=== PATIENT | female | born 1950 | race Caucasian/White ===

== ENCOUNTER 2022-09-07 14:20 | Emergency (ER) | payer OTHER, SELFPAY ==
--- NOTE | ~2022-09-07 | XR_ITS ---
XR knee RT min 4V 09/07/2022 15:01 INDICATION: Right knee pain PROCEDURE: 4 views right knee COMPARISON: No prior studies for comparison. FINDINGS: Fracture, dislocation or subluxation is not identified. No significant joint effusion. The soft tissues appear within normal limits. No foreign bodies are identified. IMPRESSION: 1: NO ACUTE BONE OR JOINT ABNORMALITY IDENTIFIED. Reviewed, dictated and finalized at location L.
[2022-09-07 14:40] VITALS: BP 144/69; PULSE 75; RESP 16; TEMP 36.8; O2SAT 100
--- NOTE | 2022-09-07 14:51 | ED.LOWEXIN ---
HPI - Extremity Injury (Lower) General Chief Complaint: Extremity Injury, Lower Stated Complaint: right knee pain Time Seen by Provider: 09/07/22 14:42 Source: patient Mode of arrival: ambulatory Limitations: no limitations History of Present Illness HPI Narrative: Patient is a 71-year-old female who presents with right knee pain after fall last week. Reports the pain is in the front and the left side of the knee and it ozuna. Patient states she has been elevating it, using ice, and an arthritis spray with no relief. Patient states she uses a pillow between her knees at night, but at 3:00 a.m. the pain is to high and she has to go sleep in recliner. Patient able ambulate unassisted. Has not used any compression Related Data Home Medications Medication Instructions Recorded Confirmed atorvastatin 80 mg tablet 80 mg PO HS 09/07/22 09/07/22 losartan 100 1 tablet PO DAILY 09/07/22 09/07/22 mg-hydrochlorothiazide 25 mg tablet pantoprazole 40 mg tablet,delayed 40 mg PO DAILY 09/07/22 09/07/22 release Allergies Allergy/AdvReac Type Severity Reaction Status Date / Time No Known Allergies Allergy Verified 09/07/22 15:16 Review of Systems Review of Systems: All systems reviewed & are unremarkable except as noted in HPI and below Constitutional: Constitutional: Denies body ache(s), Denies fever(s), Denies headache(s), Denies malaise and Denies weakness Eyes: Eyes: Denies loss of vision ENT: Denies otalgia, Denies headache(s), Denies nasal discharge, Denies sinus pain and Denies sore throat Cardiovascular: Cardiovascular: Denies chest pain, Denies irregular heart rhythm and Denies dyspnea Respiratory: Respiratory: Denies dyspnea Gastrointestinal: Gastrointestinal: Denies abdominal pain, Denies melena, Denies hematochezia, Denies diarrhea, Denies nausea and Denies vomiting Musculoskeletal: Musculoskeletal: Denies back pain, Denies myalgias and Reports arthralgias (Right knee) Integumentary/Breasts: Skin/Breast: Denies pruritus and Denies rash Neurologic: Denies headache(s), Denies loss of vision and Denies weakness Psychiatric: Psychiatric: Reports no additional psychiatric complaints PMFSH Comments At time of signature, agree with nursing past medical, surgical, social and family history. There is no relevant family history pertinent to the presenting complaint. Exam Const: General: cooperative, healthy appearing, comfortable, no acute distress and well nourished Nutritional Appearance: well nourished Orientation/consciousness: patient oriented x3 Limitations: no limitations HENMT: Head: normal to inspection, normocephalic and atraumatic Ears: external ears normal Face/Nose/Sinus: Normal external nose present, normal facial exam and face symmetric Face and sinus: normal facial exam and face symmetric Mouth: Yes lip normal Eyes: General: appearance normal, both eyes and all related structures Alignment and Position: alignment normal and position normal Periorbital: periorbital findings normal Eyelids: eyelids normal Pupils: Equal, round and reactive pupils present EOM: EOMs intact bilaterally Neck: Neck: normal visual inspection and full ROM Chest: Chest palpation & inspection: normal inspection of the chest Resp: Effort & Inspection: normal respiratory effort and able to speak in complete sentences Auscultation: clear to auscultation bilaterally Cardio: Rate: regular rate Rhythm: regular rhythm Heart sounds: S1 normal heart sound present and S2 normal heart sound present GI: Inspection: normal to inspection Skin: General skin exam: normal color and no rashes or lesions noted Neuro: General: patient oriented x3 and moves all extremities Cranial nerves: Yes Equal, round and reactive pupils present Speech: normal speech Gait exam (Neuro): Normal gait present Extrem: General: normal to inspection, full ROM and no edema Right lower extremity: knee Details: normal to inspection, swelling Loc
== END 2022-09-07 15:46 | disposition home or self-care (01) ==
PROVIDERS: Emergency Provider Nurse Practitioner Family
DX: M23.91 Unspecified internal derangement of right knee (principal); E78.00 Pure hypercholesterolemia, unspecified; I10 Essential (primary) hypertension; K21.9 Gastro-esophageal reflux disease without esophagitis
CPT/HCPCS: 73564; 99213; G0463

== ENCOUNTER 2023-08-13 08:19 | Outpatient (CLI) | payer OTHER, SELFPAY ==
--- NOTE | ~2023-08-13 | DEXA_ITS ---
Bone Density Report Name: PAMELA ACUÑA Age: 72 Sex: Female Ethnicity: White Date of : 1950 Indication: postmenopausal; screening for osteoporosis; height loss; hysterectomy; Referring Provider: KAYLA HERNÁNDEZ Study: Bone densitometry was performed. Exam Date: August 13, 2023 Accession number: [id number] Bone Density: Region BMD T-score Z-score Classification AP Spine(L1-L4) 1.076 0.3 2.6 Normal Femoral Neck (Left) 0.626 -2.0 0.1 Osteopenia Total Hip (Left) 0.902 -0.3 1.4 Normal Femoral Neck (Right) 0.656 -1.7 0.3 Osteopenia Total Hip (Right) 0.822 -1.0 0.8 Normal Total Hip Mean 0.862 -0.7 1.1 Normal World Health Organization criteria for BMD impression classify patients as: Normal (T-score at or above -1.0), Osteopenia (T-score between -1.0 and -2.5), or Osteoporosis (T-score at or below -2.5). 10-year Fracture Risk(1): Major Osteoporotic Fracture 12% Hip Fracture 2.8% Reported Risk Factors: [place] (), Neck BMD=0.626, BMI=33.1 (1) FRAX(R) Version 3.08. Fracture probability calculated for an untreated patient. Fracture probability may be lower if the patient has received treatment. Clinical Information Provided by Patient: Has used the following medications: Vitamin D Has the following medical conditions: Hysterectomy Patient maximum height was 64.5 No regular weight bearing exercise Does not regularly consume dairy products Drinks caffeinated beverages Onset of menses at age 11 Number of children 3 Impression: The patient has low bone mass, based on the Left Femoral Neck T-score. The patient has an estimated ten-year risk of hip fracture of 2.8% and an estimated ten-year risk of major fracture of 12%, based on the WHO FRAX algorithm. Discussion: BONE DENSITY IS LOW AT ONE OR MORE SKELETAL SITES. This patient's lowest T-score is low at one or more skeletal sites. It meets the World Health Organization's (WHO) criteria for ?low bone mass? (T-score between -1.0 and -2.5). The patient's 10-year risk of fracture as calculated by FRAX is less than the threshold where pharmacological therapy is recommended by the National Osteoporosis Foundation (NOF). However, all treatment decisions require clinical judgment and consideration of individual patient factors, including patient preferences, comorbidities, previous drug use, risk factors not captured in the FRAX model (e.g., frailty, falls, vitamin D deficiency, increased bone turnover, interval significant decline in bone density) and possible under or overestimation of fracture risk by FRAX. The patient should follow a healthful lifestyle (good nutrition with adequate calcium and vitamin D, and appropriate weight-bearing exercise). Follow-Up: Consider repeating this study in 2 to 3 years to reassess this
--- NOTE | ~2023-08-13 | MM_ITS ---
EXAMINATION: MM screening cassie BI w deepak HISTORY: Screening TECHNIQUE: Craniocaudal and mediolateral oblique 3-D tomosynthesis images were obtained and synthetic 2-D images were generated. CAD analysis was submitted and interpreted. COMPARISON: No prior mammogram is available for comparison at this institution. BREAST PARENCHYMAL COMPOSITION: Not dense: There are scattered areas of fibroglandular density. FINDINGS: There are focal asymmetries medially and laterally in the left breast on CC view.. There is no mammographic evidence for malignancy in the right breast. IMPRESSION: 1. Focal left breast asymmetries. 2. Additional mammographic views and possible breast ultrasound are recommended. BI-RADS Category 0: Incomplete: Needs additional imaging evaluation. Reviewed, dictated and finalized at location A. IMPRESSION: 1. Focal left breast asymmetries. 2. Additional mammographic views and possible breast ultrasound are recommended . BI-RADS Category 0: Incomplete: Needs additional imaging evaluation.
== END 2023-08-13 08:20 | disposition home or self-care (01) ==
LOC: ANHIMG 08:20
PROVIDERS: PCP Family Medicine; Visit Provider Family Medicine
DX: Z12.31 Encounter for screening mammogram for malignant neoplasm of breast (principal); Z78.0 Asymptomatic menopausal state; R92.8 Other abnormal and inconclusive findings on diagnostic imaging of breast; M85.852 Other specified disorders of bone density and structure, left thigh; M85.851 Other specified disorders of bone density and structure, right thigh
CPT/HCPCS: 77063; 77067; 77080

== ENCOUNTER 2023-08-20 11:13 | Outpatient (CLI) | payer OTHER, SELFPAY ==
--- NOTE | ~2023-08-20 | MMUS_ITS ---
EXAMINATION: MM diagnostic cassie LT w deepak, US breast LT complete HISTORY: Focal left breast mammographic asymmetries reported on 08/13/2023 screening mammogram examina tions TECHNIQUE: Additional 3-D tomosynthesis images of the left breast were performed and synthetic 2-D im ages were generated. CAD analysis was submitted and interpreted. High resolution complete left breast ultrasound examination including all 4 quadrants and subareolar area was performed. COMPARISON: 08/13/2023 bilateral screening mammogram FINDINGS: MAMMOGRAPHIC FINDINGS: No suspicious mass, architectural distortion, malignant calcification, skin thickening or retraction of the left breast is detected. ULTRASOUND: 3:00 12 cm from nipple: Benign-appearing lymph node is noted 9:00 3 cm from nipple: Irregular hypoechoic 3.9 x 3 mm hypoechoic solid mass is noted, with no straddle bug operator ior features. Due to the irregular margins of the solid lesion, ultrasound-guided biopsy is recommend ed. IMPRESSION: 1. Irregular 3.9 mm solid mass at 9:00 3 cm from nipple 2. Ultrasound-guided biopsy of 9:00 mass is recommended BI-RADS category 4, suspicious findings. Dr. Panda telephoned the report and ultrasound guided biopsy recommendation for the 3.9 mm mass at lef t breast 9:00 position on 08/20/2023 at 1250 hours to Gregory Reed. Reviewed, dictated and finalized at location A. IMPRESSION: 1. Irregular 3.9 mm solid mass at 9:00 3 cm from nipple 2. Ultrasound-guided biopsy of 9:00 mass is recommended BI-RADS category 4, suspicious findings. Dr. Panda telephoned the report and ultrasound guided biopsy recommendation for the 3.9 mm mass at left breast 9:00 position on 08/20/2023 at 1250 hours to Gregory Billings. IMPRESSION: 1. Irregular 3.9 mm solid mass at 9:00 3 cm from nipple 2. Ultrasound-guided biopsy of 9:00 mass is recommended BI-RADS category 4, suspicious findings. Dr. Panda telephoned the report and ultrasound guided biopsy recommendation for the 3.9 mm mass at left breast 9:00 position on 08/20/2023 at 1250 hours to Francoise ng, [employer]ist[employer].
== END 2023-08-20 11:14 | disposition home or self-care (01) ==
LOC: ANHIMG 11:15
PROVIDERS: PCP Family Medicine; Visit Provider Physician Assistant
DX: R92.8 Other abnormal and inconclusive findings on diagnostic imaging of breast (principal)
CPT/HCPCS: 76641; 77061; 77065; G0279

== ENCOUNTER 2023-09-17 08:09 | Outpatient (CLI) | payer OTHER, SELFPAY ==
--- NOTE | ~2023-09-17 | US_ITS ---
CORRECTED REPORT corrected examination description [facility] [place]18/2023 This report was recreated on 09/18/23. Original report was US breast cyst asp LT w g DATE: 09/17/2023 09:42 INDICATION: Irregular hypoechoic 3.9 x 3 mm lesion was reported at 9:00 3 cm from nipple TECHNIQUE: The purpose of the procedure, technique and potential competitions including bleeding were discussed with the patient. The patient verbalized understanding and gave consent. Timeout procedure was performed. The skin of the left breast was prepared with sterile solution. Sterile drapes were applied. Using ultrasound imaging, the lesion of interest at 9:00 3 cm from the nipple was located. This appeared relatively sonolucent on the current examination. 1% lidocaine local and synthetic was administered to the skin. 1% lidocaine with epinephrine was administered to the underlying subcutaneous tissues. An 18-gauge needle was introduced into the lesion with ultrasound guidance. The lesion was successfully aspirated, with no residual afterwards, consistent with simple cyst. Repeat scanning in the area revealed the lesion along are present. IMPRESSION: Successful ultrasound-guided aspiration of cyst at 9:00 3 cm from nipple Reviewed, dictated and finalized at Location A. Reviewed, dictated and finalized at location A. MTDD IMPRESSION: Successful ultrasound-guided aspiration of cyst at 9:00 3 cm from n ipple
== END 2023-09-17 08:10 | disposition home or self-care (01) ==
LOC: ANHIMG 08:11
PROVIDERS: PCP Family Medicine; Visit Provider Surgery
DX: R92.8 Other abnormal and inconclusive findings on diagnostic imaging of breast (principal)
CPT/HCPCS: 19000; 76942

== ENCOUNTER 2023-09-23 20:07 | Emergency (ER) | payer OTHER, SELFPAY ==
--- NOTE | ~2023-09-23 | XR_ITS ---
EXAMINATION: XR knee RT 3V DATE: 09/23/2023 21:03 INDICATION: Right knee pain. Fall. TECHNIQUE: 3 views of right knee were obtained. COMPARISON: Radiographs 09/07/2022 FINDINGS: Bone alignment is normal. No fracture. Joint spaces are normal. No knee joint effusion. IMPRESSION: 1. No fracture. Reviewed, dictated and finalized at location E. IMPRESSION: 1. No fracture.
--- NOTE | ~2023-09-23 | CT_ITS ---
EXAMINATION: CT cervical spine wo con DATE: 09/23/2023 20:47 INDICATION: Neck injury. TECHNIQUE: Computed tomography (CT) of the cervical spine was performed without intravenous contrast. Automated exposure control and iterative reconstruction technique were employed. The dose-length pro duct was 355.36 mGy-cm. COMPARISON: None FINDINGS: There is a 17 mm nodule in right thyroid lobe. Vertebral body heights are normal. There is mild chronic anterior wedging of T2 vertebral body. There is mildly decreased disc height at C3-C4 an d C4-C5 and moderately decreased disc height at C5-C6 and C6-C7. The following disc levels are specif ically discussed: C2-C3: There is no uncovertebral joint osteoarthritis. There is moderate bilateral facet joint osteoa rthritis. There is no neural foraminal stenosis. There is no central canal stenosis. C3-C4: There is mild bilateral uncovertebral joint osteoarthritis. There is severe bilateral facet brooke int osteoarthritis. There is mild bilateral neural foraminal stenosis. There is no central canal sten osis. C4-C5: There is severe right and moderate left uncovertebral joint osteoarthritis. There is severe bi lateral facet joint osteoarthritis. There is mild bilateral neural foraminal stenosis. There is mild central canal stenosis. C5-C6: There is severe bilateral uncovertebral joint osteoarthritis. There is severe bilateral facet joint osteoarthritis. There is mild bilateral neural foraminal stenosis. There is mild central canal stenosis. C6-C7: There is mild bilateral uncovertebral joint osteoarthritis. There is severe bilateral facet brooke int osteoarthritis. There is mild bilateral neural foraminal stenosis. There is no central canal sten osis. C7-T1: There is no uncovertebral joint osteoarthritis. There is severe bilateral facet joint osteoart hritis. There is mild bilateral neural foraminal stenosis. There is no central canal stenosis. IMPRESSION: 1. No fracture. 2. Moderate cervical spondylosis. Reviewed, dictated and finalized at location E.
--- NOTE | ~2023-09-23 | CT_ITS ---
EXAMINATION: CT brain wo con DATE: 09/23/2023 20:47 INDICATION: Head trauma. TECHNIQUE: Computed tomography (CT) of the head was performed without intravenous contrast. The mA wa s adjusted according to patient size. Iterative reconstruction technique was employed. The dose-lengt h product was 681.00 mGy-cm. COMPARISON: None FINDINGS: There is no intracranial hemorrhage, acute infarction, or abnormal intracranial mass lesion . The ventricles are normal in size. There is mild mucosal thickening in the paranasal sinuses. The o rbits are normal. The mastoid air cells are normal. IMPRESSION: 1. Normal brain. Reviewed, dictated and finalized at location E. IMPRESSION: 1. Normal brain.
[2023-09-23 20:09] VITALS: BP 172/72; PULSE 75; RESP 18; TEMP 36.6; O2SAT 100
--- NOTE | 2023-09-23 20:19 | ECG_ITS ---
SEE SCANNED COPY FOR CONFIRMED REPORT MTDD
[2023-09-23 20:20] VITALS: PULSE 91
[2023-09-23 20:34] LABS: Basophils Absolute Auto 0.1 K/mm3 (0.0-0.1); Basophils Percent Auto 0.5 % (0.2-1.2); Eosinophils Absolute Auto 0.1 K/mm3 (0-0.3); Eosinophils Percent Auto 0.8 % (0-4.4); Hematocrit 41.2 % (37.0-47.0); Hemoglobin 13.7 g/dL (12.0-15.0); Immature Granulocyte Absolute 0.02 K/mm3 (0.00-0.031); Immature Granulocyte Percent A 0.2 % (0-0.5); Lymphocytes Absolute Auto 3.86 K/mm3 (0.9-3.2); Lymphocytes Percent Auto 38.7 % (18.3-44.2); Mean Corpuscular HGB Conc 33.3 g/dl (32-36); Mean Corpuscular Hemoglobin 28.5 pg (26-34); Mean Corpuscular Volume 85.7 fl (80-100); Mean Platelet Volume 9.7 fl (7.4-10.4); Monocytes Absolute Auto 0.9 K/mm3 (0.1-0.6); Monocytes Percent Auto 9.1 % (2.6-8.5); Neutrophils Absolute Auto 5.1 K/mm3 (1.3-6.7); Neutrophils Percent Auto 50.7 % (45.5-73.1); Platelet Count Result 282 k/mm3 (150-375); Red Blood Count 4.81 M/mm3 (4.2-5.4)
[2023-09-23 20:44] LABS: Alanine Aminotransferase 13 U/L (6-35); Albumin Level 4.6 g/dL (3.5-5.1); Alkaline Phosphatase 79 U/L (38-126); Anion Gap 8 mmol/L (4-12); Aspartate Amino Transferase 23 U/L (14-36); Bilirubin,Total 0.9 mg/dL (0.2-1.3); Blood Urea Nitrogen 17 mg/dL (7-17); Calcium 9.9 mg/dL (8.4-10.2); Carbon Dioxide 27 mmol/L (22-30); Chloride 105 mmol/L (98-107); Estimated CRCL calculation 41 ml/min; Estimated Glomerular Filt Rate 49; Glucose 104 mg/dL (65-110); INR 0.9; Potassium 3.7 mmol/L (3.4-5.0); Prothrombin Time 12.6 Seconds (11.1-14.7); Sodium 140 mmol/L (137-145)
[2023-09-23 20:45] LABS: Partial Thromboplastin Time 25.3 Seconds (22.3-36.8)
--- NOTE | 2023-09-23 21:10 | ED.GENADULT ---
HPI - General Adult General Chief complaint: Trauma Stated complaint: fall head injury Time Seen by Provider: 09/23/23 20:16 History of Present Illness HPI narrative: This is a 72-year-old female presenting after a fall. She was attempting to move a children's table she hit her knee against it. She then fell striking the back her head. She did lose consciousness. No use of blood thinners. She regained consciousness but developed headache and then came to emergency room evaluation. This time she is complaining of a headache pain in left side of her neck and right knee pain. She has been ambulatory since the incident. Related Data Allergies Allergy/AdvReac Type Severity Reaction Status Date / Time No Known Allergies Allergy Verified 08/22/23 09:58 PMF Past Medical History Medical History Benign essential HTN Diabetes mellitus Hernia of abdominal cavity Hyperlipidemia Uterine fibroid Surgical History Surgical History H/O colonoscopy with polypectomy 2020, repeat in 2025 Hx of cholecystectomy Hx of hysterectomy S/P hernia surgery x3 Family History Family History Father Diabetes mellitus Hypertension Cerebrovascular accident Mother Diabetes mellitus Hypertension Cerebrovascular accident Sibling Diabetes mellitus Hypertension Cerebrovascular accident Social History Social History (Updated 08/22/23 @ 10:20 by Pao Dolan CMA) Social History: Smoking status: Never smoker Second hand tobacco smoke exposure: No Alcohol intake: never Substance use: never Substance use type: does not use Do You Feel Safe in your Home?: Yes Lack of Transportation: No Lack of Food: Never True Current Housing: I Have Housing Concerned About Future Housing: No Difficulty Paying Gas/Electric Bills: No Difficulty Paying for Meds: No Currently Unemployed: No Education: Don't Know Difficulty w/ Childcare or Family Care: No Living arrangements: with family Occupation/Education: retired Gender identity (if verbalized by the patient): Female Sexual Orientation (if Verbalized by the Patient): Straight or Heterosexual Exam Narrative: APPEARANCE: No apparent distress. Head: atraumatic. EYES: EOMI, NOSE: Atraumatic NECK: Trachea midline RESPIRATORY: No increased rate of breathing CTAB CARDIOVASCULAR: RRR, no peripheral edema ABDOMINAL: Non-distended soft nontender MUSCULOSKELETAl: Head to toe trauma exam revealed no obvious injuries NEURO: Alert. Cranial nerves 2-12 grossly intact. Sensation light touch, motor function cerebellar function intact for 4 extremities. Gait exam was normal. SKIN:: Warm, dry. Normal color PSYCHIATRIC: Normal affect Course Vital Signs Vital signs: Vital Signs Temperature 97.8 F 09/23/23 20:09 Pulse Rate 75 09/23/23 20:09 Respiratory Rate 18 09/23/23 20:09 Blood Pressure 172/72 H 09/23/23 20:09 Pulse Oximetry 100 09/23/23 20:09 Oxygen Delivery Room Air 09/23/23 20:09 Temperature 97.8 F 09/23/23 20:09 Pulse Rate 91 09/23/23 20:20 Respiratory Rate 18 09/23/23 20:09 Blood Pressure 172/72 H 09/23/23 20:09 Pulse Oximetry 100 09/23/23 20:09 Oxygen Delivery Room Air 09/23/23 20:09 Medical Decision Making [facility] Narrative Medical decision making narrative: -Course: 72-year-old female presenting after a mechanical fall. Trauma workup negative. Metabolic panel unremarkable. Patient refused all pain medication. Patient be discharged with primary care follow-up. -DDX includes but is not limited to: Concussion, ICH, soft tissue injury -Independent interpretation of studies: Imaging negative for traumatic injury. Labs reviewed WNL -Shared decision making / Disposition:d/c'd Vital Signs Vital Signs: Vital
== END 2023-09-23 21:48 | disposition home or self-care (01) ==
PROVIDERS: Emergency Provider Emergency Medicine; PCP Family Medicine
DX: S19.9XXA Unspecified injury of neck, initial encounter (principal); S89.91XA Unspecified injury of right lower leg, initial encounter; I10 Essential (primary) hypertension; E11.9 Type 2 diabetes mellitus without complications; E78.5 Hyperlipidemia, unspecified; Z90.49 Acquired absence of other specified parts of digestive tract; Z90.710 Acquired absence of both cervix and uterus; R94.31 Abnormal electrocardiogram [ECG] [EKG]; M47.812 Spondylosis without myelopathy or radiculopathy, cervical region; W18.09XA Striking against other object with subsequent fall, initial encounter
CPT/HCPCS: 36415; 70450; 72125; 73562; 80053; 85025; 85610; 85730; 93005; 99284

== ENCOUNTER 2024-08-05 16:57 | Outpatient (CLI) | payer OTHER, SELFPAY ==
--- NOTE | ~2024-08-05 | XR_ITS ---
Clinical Indication: Chest pain PA and lateral views of the chest: Comparison: None Findings: The lungs are clear, without evidence of focal consolidation or pleural effusion. Cardiome diastinal silhouette is within normal limits. Bones and soft tissues are unremarkable. Impression: Normal chest. Reviewed, dictated and finalized at location . Impression: Normal chest.
--- OUTSIDE RECORDS SUMMARY | 2024-08-05 18:16 | XMS_ITS | CONTINUITY OF CARE DOCUMENT ---
Author Name devendra ramsay Address Unknown Organization [facility] Address [address] [place] [address] Phone [phone] Care Team Providers Care Bsa Officer Name Role Phone Dennis COHEN, Edu Unavailable [phone] TANIA HUTCHISON DO Unavailable [phone] TANIA HUTCHISON DO Unavailable [phone] PROBLEMS Condition Status Date Provider Notes Dyspnea on exertion active Neva Ochoa INSURANCE PROVIDERS Payer name Policy type / Coverage type [place] red constitution party ID [facility] [id number] [place] MED[place] Medicare [id number] HISTORY OF PROCEDURES Procedure Date Procedure Name Provider Procedure Notes S tatus Stress EKG Edu Collins MD completed Regadenoson, 4 units Jovani Centeno MD completed Cardiolite, 2 units Jovani Centeno MD completed SPECT Images Edu Collins MD complet ed
--- OUTSIDE RECORDS SUMMARY | 2024-08-05 18:16 | XMS_ITS | Clinical Summary ---
Author Organization [facility] Address [address] [place] [id number] Care Team Providers Care Tail Sawyer Name Role Phone Unavailable Primary Care Provider Unavailabl e Allergies No known active allergies Medications Blood Glucose Monitoring Suppl (ONE TOUCH ULTRA 2) w/Device KitIndications:Typ e 2 diabetes mellitus without complication, without long-term current use of insulin ([facility]) Use four times a day 1 kit 2 Active CONTOUR NEXT TEST test stripIndications:T ype 2 diabetes mellitus without complication, without long-term current use of insulin ([facility]) USE FOUR TIMES A DAY 100 strip 3 2 Active Microlet Lancets MiscIndications:Ty pe 2 diabetes mellitus without complication, without long-term current use of insulin ([facility]) USE FOUR TIMES A DAY 100 each 3 2 Active losartan-hydroCHLO ROthiazide (HYZAAR) 100-25 MG tabletIndications: Primary hypertension Take 1 tablet by mouth daily. 90 tablet 1 3 Active acetaminophen (TYLENOL) 500 MG tabletIndications: Sprain of medial collateral ligament of right knee, initial encounter Take 2 tab po qid 100 tablet 2 3 Active clotrimazole (LOTRIMIN) 1 % creamIndications:T inea pedis of both feet Apply topically 2 (two) times daily. 85 g 1 3 Active atorvastatin (LIPITOR) 80 MG tabletIndications: Mixed hyperlipidemia TAKE 1 TABLET BY MOUTH NIGHTLY AT BEDTIME. 90 tablet 1 3 Active pantoprazole EC (PROTONIX) 40 MG tabletIndications: Gastroesophageal reflux disease without esophagitis take 1 tablet by mouth every day 90 tablet 4 Active Active Problems Problem Noted Date Diagnosed Date Type 2 diabetes mellitus wit h stage 3a chronic kidney disease, without long-term current use of insulin ([facility]) 08/01/2022 Type 2 diabetes mellitus wit h other circulatory complication, without long-term current use of insulin ([facility]) 08/01/2022 Chronic kidney disease, stage 3a 06/29/2022 Abnormal liver enzymes 04/10/2022 Abnormal vision 04/10/2022 Arthritis 04/10/2022 Dehydration 04/10/2022 Flank pain 04/10/2022 Hyperlipidemia 04/10/2022 Kidney stone 04/10/2022 Osteopenia 04/10/2022 Shoulder pain 04/10/2022 Vitamin D deficiency 04/10/2022 Gastroesophageal reflux disease without esophagi tis 10/06/2021 Chronic low back pain 10/06/2021 Primary osteoarthritis of left hip 10/06/2021 Hyperglycemia 07/10/2017 Dyspnea on exertion 03/02/2015 Class 1 obesity due to exces s calories with serious comorbidity and body mass index (BMI) of 34.0 to 34.9 in adult Hypertension Resolved Problems Problem Noted Date Diagnosed Date Resolved Date Morbid (severe) obesity due to excess calories 01/06/2022 06/29/2022 Immunizations Name Administration Dates Next Due Fluzone High Dose - >Age 65 (Prefilled Syringe) 02/28/2021,03/12/2020 Influenza (Generic) 04/15/2014 Influenza Adult (Generic) 03/05/2022,,02/19/2018,2016,03/30/2016,03/17/2015,04/08/2014 MODERNA COVID-19 (12+) MRNA, LNP-S, PF, 100 MCG/ 0.5 ML DOSE 03/05/2022,11/05/2021,08/21/2020,2020 Pneumococcal (Pneumovax 23) 04/15/2014, 4 Pneumococcal (Prevnar 13) 06/29/2016 Pneumococcal (Prevnar 20) 01/06/2022 Tetanus Toxoid Inj 04/08/2014 Family History Medical History Relation Comments Diabetes Father Hypertension Father Stroke Father Diabetes Mother Hypertension Mother Stroke Mother Diabetes Sister Relation Status Comments Father Mother Sister Social History Tobacco Use Types Packs/Day Years Used Date Smoking Tobacco: Never Smokeless Tobacco: Never Tobacco Cessation:Counseling Given: No Alcohol Use Standard Drinks/Week Comments Not Currently 0 (1 standard drink = 0.6 oz pur e alcohol) PHQ-2 Answer Date Recorded Patient Health Questionnaire-2 Score 0 06/29/2022 Comments No Sex and Gender Information Value Date Recorded Sex Assigned at Not on file Legal Sex Female 8:32 AM CDT Gender Identity Not on file Sexual Orientation Not on file 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 file Not on file Not on file [employer] Not on file Not on file Not on file Last Filed Vital Signs Vital Sign Reading Time Taken Comments Blood Pressure 143/78 12/19/2022 9:40 AM CDT Pulse 83 12/19/2022 9:40 AM CDT Temperature 36.8 C (98.3 F) 12/19/2022 9:40 AM CDT Respiratory Rate 16 12/04/2022 12:42 PM CDT Oxygen Saturation 97% 12/04/2022 12:42 PM CDT Inhaled Oxygen Concentration - - Weight 82.6 kg (182 lb 3.2 oz) 12/19/2022 9:40 A M CDT Height 160 cm (5' 3 ) 12/19/2022 9:40 AM CDT Body Mass Index 32.28 12/19/2022 9:40 AM CDT Plan of Treatment Health Maintenance Due Date Last Done Comments Kidney Health Evaluation 1950 Diabetes: Retinopathy Eye Exam 1966 Zoster Vaccines (1 of 2) 1998 Annual Medicare Wellness Visit 2013 Dexa Scan (General) 2013 Hemoglobin A1C 03/31/2023 09/28/2022, 02/0 06/2022, 04/10/2022, Additional history exists Lipid Panel 06/29/2023 06/29/2022, 10/25/2021 RSV Immunization or 60+ Years (1 - 1-dose 75+ series) 11/29/2023 COVID-19 Vaccine ( season) 2024 03/05/2022, 11/05/2021, 08/21/2020, Additional history exists Influenza Adult (#1) 2024 03/05/2022, 02/28/2021, 03/12/2020, Additional history exists DTaP, Tdap and Td Vaccines (2 - Td or Tdap) 04/15/2024 04/15/2014, 04/08/2014, 04/08/2014 PHQ-2 (Physician [place]) 05/28/2024 Colorectal Cancer Screening Colonoscopy (10 Years) 07/22/2029 07/22/2019, 11/19/2007 Pneumococcal Vaccine: 65+ Years Completed 01/06/2022, 06/29/2016, 04/15/2014, Additional history exists Hepatitis C Completed 06/29/2022 Meningococcal B Vaccine Aged Out No l onger eligible based on patient's age to complete this topic Meningococcal Vaccine Aged Out No sravan chai eligible based on patient's age to complete this topic RSV Immunizations Under 20 Months Aged Out No longer eligible based on patient's age to complete this topic Procedures Procedure Name Priority Date/Time Associated Diagnosis Comments HEMOGLOBIN, GLYCOSYLATED Routine 09/28/2022 Type 2 diabetes mellitus with other circulatory complication, without long-term current use of insulin Type 2 diabetes mellitus with stage 3a chronic kidney disease, without long-term current use of insulin HEPATITIS C ANTIBODY Routine 06/29/2022 11:14 AM TELEMARKETER Encounter for hepatitis C screening test for low risk patient LIPID PANEL Routine 06/29/2022 11:14 AM TELEMARKETER Mixed hyperlipidemia COLONOSCOPY GENERIC (SCAN ORDER) 07/22/2019 from Last 3 Months or Most Recently Relevant to Health Maintenance Results * HEMOGLOBIN, GLYCOSYLATED (09/28/2022) HGB A1C 6.0 % [facility] 09/28/2022 Bianca Matthews MD LABORATORY Final Result [facility] [address] [place] [address], [place] [phone] * (ABNORMAL) LIPID PANEL (06/29/2022 11:14 AM TELEMARKETER) CHOLESTEROL 207(H) <200 MG/DL 06/29/2022 10:17 PM TELEMARKETER [facility] TRIGLYCERIDES 99 <150 MG/DL 06/29/2022 10:[address] [facility] HDL 54 >40 MG/DL 06/29/2022 10:[address] [facility] LDL-C 133(H) <100 MG/DL 06/29/2022 10:17 PM TELEMARKETER [facility] VLDL CALCULATION 20 5 - 28 MG/DL 06/29/2022 10:[address] [facility] CHOL/HDL RATIO 3.8 0.0 - 4.0 06/29/2022 10:17 PM TELEMARKETER [facility] LDL/HDL 2.5(H) 0.41 - 2.13 06/29/2022 10:17 PM TELEMARKETER [facility] NON HDL CHOLESTEROL 153(H) <140 MG/DL 06/29/2022 10:17 PM TELEMARKETER [facility] 06/29/2022 11:1 4 AM TELEMARKETER [place] Bianca Matthews MD LABORATORY Final Result Performing Organization Address City/[facility]/ZIP Co de Phone Number [facility] [address] [place] [address], [place] [phone] * HEPATITIS C ANTIBODY (06/29/2022 11:14 AM TELEMARKETER) HEPATITIS C AB NON-REACTI VE NON-REACT [place]STINEE 06/30/2022 4:46 PM TELEMARKETER [facility] Comment: ANTIBODIES TO HCV NOT DETECTED. DOES NOT EXCLUDE THE POSSIBILITY OF EXPOSURE TO HCV. 06/29/2022 11:1 4 AM TELEMARKETER us Bianca Matthews MD LABORATORY Final Result [facility] [address] [place] [address], [phone] * COLONOSCOPY GENERIC (07/22/2019) 07/22/2019 us [facility] Scanned SCANNING Final Resu lt from Last 3 Months or Most Recently Relevant to Health Maintenance Insurance
== END 2024-08-05 16:58 | disposition home or self-care (01) ==
PROVIDERS: PCP Family Medicine; Visit Provider Physician Assistant
DX: R07.9 Chest pain, unspecified (principal)
CPT/HCPCS: 71046

== ENCOUNTER 2024-08-21 09:41 | Outpatient (CLI) | payer OTHER, SELFPAY ==
--- NOTE | ~2024-08-21 | NM_ITS ---
EXAMINATION: NM arun stress w perfusion DATE: 08/21/2024 12:25 CDT INDICATION: Chest pain TECHNIQUE: Rest images were obtained following intravenous administration of 11 mCi Tc99m tetrofosmin (Myoview). The patient was infused intravenously with Lexiscan (regadenoson). Then, 34.3 mCi Tc99m t etrofosmin (Myoview) was administered intravenously, and stress images were obtained. Data was recons tructed into short axis and horizontal and vertical long axis SPECT images. Gated SPECT images were a lso obtained. COMPARISON: None. FINDINGS: There is no definite reversible or fixed perfusion abnormality to suggest ischemia or infar ction. There is no segmental wall motion abnormality. Left ventricular ejection fraction measures 6 9%. IMPRESSION: 1. No definite ischemia or infarct. 2. Normal left ventricular ejection fraction measuring 69%. Reviewed, dictated and finalized at location A.
--- NOTE | 2024-08-21 09:52 | EST_ITS ---
Patient Info Name: Leah Matos Age: 73 years : 1950 Gender: Female Ht: 63 in Wt: 198 lbs BSA: 2.04 m2 HR: 71 bpm BP: 157 / 82 mmHg Exam Date: 08/21/2024 11:07 AM Exam Location: Echo Lab Patient Status: Outpatient Admit Date: 08/21/2024 Staff Ordering Physician: May Casey PA-C Attending Provider: May Casey PA-C Exercise Technologist: kira mckeon Exercise Physician: Bismark Dominguez DO Exam Type: CA stress arun w NM Study Info Indications R07.9 - Chest pain, unspecified A regadenoson stress test was performed. Summary 1. 1. Negative lexiscan stress test for ischemic ST changes by ECG criteria. 2. 2. Baseline hypertension. 3. 3. Nuclear scan to follow and will be reported separately. Please correlate with it. 4. 4. Patient informed of the above results. Protocol: Lexiscan Stress ECG Details Stage: REST Duration (min): 3 min : 22 sec HR (bpm): 71 SBP (mmHg): --- DBP (mmHg): --- Stage: REST Duration (min): 4 min : 22 sec HR (bpm): 76 SBP (mmHg): 157 DBP (mmHg): 82 Stage: REST Duration (min): 11 min : 28 sec HR (bpm): 79 SBP (mmHg): 157 DBP (mmHg): 82 Stage: STAGE 1 Duration (min): 1 min : 0 sec HR (bpm): 103 SBP (mmHg): 157 DBP (mmHg): 82 Stage: RECOVERY Duration (min): 1 min : 0 sec HR (bpm): 102 SBP (mmHg): 186 DBP (mmHg): 75 Stage: RECOVERY Duration (min): 2 min : 0 sec HR (bpm): 94 SBP (mmHg): 186 DBP (mmHg): 75 Stage: RECOVERY Duration (min): 3 min : 0 sec HR (bpm): 95 SBP (mmHg): 186 DBP (mmHg): 75 Stage: RECOVERY Duration (min): 4 min : 0 sec HR (bpm): 90 SBP (mmHg): 219 DBP (mmHg): 76 Stage: RECOVERY Duration (min): 4 min : 2 sec HR (bpm): 90 SBP (mmHg): 219 DBP (mmHg): 76 Rest HR: 79 bpm Peak HR: 104 bpm Rest Sys BP: 157 mmHg Peak Sys BP: 219 mmHg Max Pred HR: 145 bpm % Max Pred HR: 72 % Target HR: 123 bpm Max RPP: 22,776 bpm*mmHg Termination Reason: Completed protocol Cardiac Symptoms: Shortness of breath Total Time: 1 min : 0 sec Rest Robison BP: 82 mmHg Peak Robison BP: 76 mmHg Total Dose: 0.4 mg Resting ECG Sinus rhythm. Stress ECG No ST changes. Arrhythmias None. Report Signatures
--- OUTSIDE RECORDS SUMMARY | 2024-08-21 10:25 | XMS_ITS | CONTINUITY OF CARE DOCUMENT ---
Author Name devendra ramsay Address Unknown Organization [facility] Address [address] [facility] [address] [facility] [address] [place] [address] Phone [phone] Care Team Providers Care Hearse Driver Name Role Phone Dennis COHEN, Edu Unavailable TANIA HUTCHISON DO Unavailable [phone] TANIA HUTCHISON DO Unavailable [phone] PROBLEMS Condition Status Date Provider Notes Dyspnea on exertion active Neva Ochoa INSURANCE PROVIDERS Payer name Policy type / Coverage type [place] red libertarian ID [facility] [id number] [place] MED[place] Medicare [id number] HISTORY OF PROCEDURES Procedure Date Procedure Name Provider Procedure Notes S tatus Stress EKG Edu Collins MD completed Regadenoson, 4 units Jovani Centeno MD completed Cardiolite, 2 units Jovani Centeno MD completed SPECT Images Edu Collins MD complet ed
--- OUTSIDE RECORDS SUMMARY | 2024-08-21 10:25 | XMS_ITS | Clinical Summary ---
Author Organization [facility] Address [address] [place] [address] Care Team Providers Care Supplier Quality Engineering Manager Name Role Phone Unavailable Primary Care Provider Unavailabl e Allergies No known active allergies Medications Blood Glucose Monitoring Suppl (ONE TOUCH ULTRA 2) w/Device KitIndications:Typ e 2 diabetes mellitus without complication, without long-term current use of insulin ([facility]) Use four times a day 1 kit 2 Active CONTOUR NEXT TEST test stripIndications:T ype 2 diabetes mellitus without complication, without long-term current use of insulin ([facility]) USE FOUR TIMES A DAY 100 strip 3 2 Active Microlet Lancets MiscIndications:Ty pe 2 diabetes mellitus without complication, without long-term current use of insulin ([facility]) USE FOUR TIMES A DAY 100 each [...] disease, without long-term current use of insulin ([facility]) 08/01/2022 Type 2 diabetes mellitus wit h other circulatory complication, without long-term current use of insulin ([facility]) 08/01/2022 Chronic kidney disease, stage 3a 06/29/2022 [...] Tdap) 04/15/2024 04/15/2014, 04/08/2014, 04/08/2014 PHQ-2 (Physician [place]) 05/28/2024 Colorectal Cancer Screening Colonoscopy (10 Years) [...] HEPATITIS C ANTIBODY Routine 06/29/2022 11:14 AM CLOTHING DESIGNER Encounter for hepatitis C screening test for low risk patient LIPID PANEL Routine 06/29/2022 11:14 AM CLOTHING DESIGNER Mixed hyperlipidemia COLONOSCOPY GENERIC (SCAN ORDER) 07/22/2019 from Last 3 Months or Most Recently Relevant to Health Maintenance Results * HEMOGLOBIN, GLYCOSYLATED (09/28/2022) HGB A1C 6.0 % [facility]AP[facility] 09/28/2022 Bianca Matthews MD LABORATORY Final Result [facility] [address] [place] [address], [place] [phone] * (ABNORMAL) LIPID PANEL (06/29/2022 11:14 AM CLOTHING DESIGNER) CHOLESTEROL 207(H) <200 MG/DL 06/29/2022 10:17 PM CLOTHING DESIGNER [facility] TRIGLYCERIDES 99 <150 MG/DL 06/29/2022 10:17 PM [facility] HDL 54 >40 MG/DL 06/29/2022 10:17 PM [facility] LDL-C 133(H) <100 MG/DL 06/29/2022 10:17 PM CLOTHING DESIGNER [facility] VLDL CALCULATION 20 5 - 28 MG/DL 06/29/2022 10:17 PM [facility] CHOL/HDL RATIO 3.8 0.0 - 4.0 06/29/2022 10:17 PM CLOTHING DESIGNER [facility] LDL/HDL 2.5(H) 0.41 - 2.13 06/29/2022 10:17 PM CLOTHING DESIGNER [facility] NON HDL CHOLESTEROL 153(H) <140 MG/DL 06/29/2022 10:17 PM CLOTHING DESIGNER [facility] 06/29/2022 11:1 4 AM CLOTHING DESIGNER us Bianca Matthews MD LABORATORY Final Result Performing Organization Address City/[facility]/ZIP Co de Phone Number [facility] [address] [place] [address], [place] [phone] * HEPATITIS C ANTIBODY (06/29/2022 11:14 AM CLOTHING DESIGNER) HEPATITIS C AB NON-REACTI VE NON-REACT DESTINEE 06/30/2022 4:46 PM CLOTHING DESIGNER [facility] Comment: ANTIBODIES TO HCV NOT DETECTED. DOES NOT EXCLUDE THE POSSIBILITY OF EXPOSURE TO HCV. 06/29/2022 11:1 4 AM CLOTHING DESIGNER us Bianca Matthews MD LABORATORY Final Result [facility] [address] [place] [address], [phone] * COLONOSCOPY GENERIC (07/22/2019) 07/22/2019 us [facility] Scanned SCANNING Final Resu lt from Last 3 Months or Most Recently Relevant to Health Maintenance Insurance
== END 2024-08-21 09:42 | disposition home or self-care (01) ==
PROVIDERS: PCP Family Medicine; Visit Provider Physician Assistant
DX: R07.9 Chest pain, unspecified (principal); R60.0 Localized edema
CPT/HCPCS: 78452; 93017; A9502; J2785

== ENCOUNTER 2025-05-07 12:22 | Outpatient (CLI) | payer OTHER, SELFPAY ==
--- NOTE | ~2025-05-07 | US_ITS ---
EXAMINATION: US thyroid DATE: 05/07/2025 13:16 INDICATION: Nodule TECHNIQUE: Multiple ultrasound images of the thyroid were obtained. COMPARISON: None. FINDINGS: The right thyroid lobe measures 5.3 x 1.7 x 2.7 cm. The left thyroid lobe measures 4.8 x 1.8 x 1.7 cm. Isthmus: 3.1 mm Bilateral nodules are seen with the largest in the midpole right lobe measuring 2.7 x 1.6 x 1.4 cm, TR 4. The largest in the left lobe measures 1.5 x 1.2 x 0.6 cm, TR 4. 8 x 5 x 7 mm lesion in the left lobe has punctate echogenic foci, TR 5. The remaining nodules TR 4 classification. IMPRESSION: Several bilateral thyroid nodules, the largest of which TR 4. Correlation with FNA or surveillance thyroid ultrasound. Reviewed, dictated and finalized at location A. INSPECTOR IMPRESSION: Several bilateral thyroid nodules, the largest of which TR 4. Cor relation with FNA or surveillance thyroid ultrasound.
== END 2025-05-07 12:23 | disposition home or self-care (01) ==
PROVIDERS: PCP Family Medicine; Visit Provider Physician Assistant Medical
DX: E04.2 Nontoxic multinodular goiter (principal)
CPT/HCPCS: 76536